=== PATIENT | male | born 1955 | race Caucasian/White ===

== ENCOUNTER → 2017-03-31 | Outpatient (CLI) | payer BC ==
[~2017-03-31] MED LIST: ASCO-297 PO; ATOR10TA20 PO; BUTA1TAB9 PO; CYAN1TAB46 PO; FISH1CAP59 PO; FLUT16SP12 NS; IBUP-1264 PO; METF-203 PO; MULT-934 PO; VITA200C63 PO
--- NOTE | 2017-03-31 10:43 | DI ---
Indication: ITS.REASON: R25.1 TREMOR, UNSPECIFIED PROCEDURE: MRI BRAIN W/O CONTRAST: Encounter: Initial Comparisons: Head CT dated April 08, 2013 Technique: Multiplanar, multisequence, MR imaging of the head without contrast was acquired. FINDINGS: The ventricles are of normal size, shape, and contour for the patient's age. There are small nonspecific punctate areas of T2-weighted and T2 FLAIR weighted signal abnormality in the deep frontoparietal white matter that most likely represent small vessel ischemic disease. This is of a degree that is considered to be normal for the patient's age. The brain stem, cerebellum, and cerebral hemispheres otherwise have a normal morphologic appearance as well as MR signal intensity on all pulse sequences. There are no areas of restricted diffusion on diffusion weighted imaging to suggest an acute infarct. There is no evidence of an intracranial mass lesion, intracranial hemorrhage, or hydrocephalus. The visualized portions of the orbits, calvarium, and skull base demonstrate no significant abnormality. Mild sphenoid sinus disease. IMPRESSION: Unremarkable MRI of the head for the patient's age without contrast. .
== END ==
LOC: IMA 08:59
PROVIDERS: ATTEND Family Medicine
DX: R25.1 Tremor, unspecified (principal)

== ENCOUNTER 2018-06-21 10:49 | Inpatient (IN) ==
[2018-06-21 15:25] VITALS: BMI 34.9
[2018-06-21] MEDS ORDERED: LOTEPREDNOL 0.5% EACH EYE ONE (17:06)
[2018-06-21] MEDS ORDERED: OPTH EACH EYE ONE (17:06)
[2018-06-21] MEDS ORDERED: HYDROCORTISONE 2.5% CREAM 30gm TOP ONE (17:10)
[2018-06-21] MEDS: AMOXICILLIN 500 MG CAPSULE PO SCH (17:30)
[2018-06-21] MEDS ORDERED: HYDROCORTISONE 2.5% CREAM 30gm TOP PRN (17:45)
[2018-06-21] MEDS: APIXABAN 5 MG TABLET PO SCH (22:23)
[2018-06-21] MEDS: FLUTICASONE NASAL SPRAY 50mcg EA NOSTRIL SCH (22:24)
[2018-06-21] MEDS: SYSTANE EYE DROPS 0.7ml EACH EYE SCH (22:24)
[2018-06-22] MEDS: AMOXICILLIN 500 MG CAPSULE PO SCH ×3 (02:06→17:42)
[2018-06-22] MEDS: LEVOTHYROXINE 75 MCG TABLET PO SCH (05:56)
[2018-06-22] MEDS: ASCORBIC ACID 500 MG TABLET PO SCH (08:52)
[2018-06-22] MEDS: APIXABAN 5 MG TABLET PO SCH ×2 (08:53→20:27)
[2018-06-22] MEDS: LOSARTAN 50 MG TABLET PO SCH (08:53)
[2018-06-22] MEDS: ASPIRIN 81 MG CHEWABLE TABLET PO SCH (08:53)
[2018-06-22] MEDS: SYSTANE EYE DROPS 0.7ml EACH EYE SCH ×4 (08:53→20:29)
[2018-06-22] MEDS ORDERED: BIOTIN 1 MG PO SCH (09:00)
[2018-06-22] MEDS: AMIODARONE 200 MG TABLET PO SCH ×2 (09:41→20:27)
[2018-06-22] MEDS: FLUTICASONE NASAL SPRAY 50mcg EA NOSTRIL SCH ×2 (09:42→20:28)
--- NOTE | 2018-06-22 10:40 | IRU 24Hr Post Admit Eval ---
24 Hr Post Admission Physical - Relevant Changes Relevant Changes: No Reviewed: I have reviewed the patient's information and concur with the finding and results of the pre-admission screen. Certification: I certify the patient for rehabilitation. - Patient Condition (1) Sepsis following procedure Status: Resolved Code(s): T81.4XXA - Infection following a procedure, initial encounter; A41.9 - Sepsis, unspecified organism Classification: IRF Tx That Should Address Diagnosis, Diagnosis Requiring Medical Follow Up Additional Information: This patient underwent lumbar laminectomy on 05/30/2018. He did well for several days but subsequently developed fever and increasing pain as well as delirium. He was noted to have a postoperative abscess which required surgical drainage. He met criteria for sepsis. He continues on oral antibiotics and close wound monitoring. (2) Paroxysmal atrial fibrillation with rapid ventricular response Status: Acute Code(s): I48.0 - Paroxysmal atrial fibrillation Classification: IRF Tx That Should Address Diagnosis, Diagnosis Requiring Medical Follow Up (3) Parkinson disease Status: Chronic Code(s): G20 - Parkinson's disease Classification: Present on IRF Admission, IRF Tx That Should Address Diagnosis, Diagnosis Requiring Medical Follow Up (4) DM II (diabetes mellitus, type II), controlled Status: Chronic Qualifiers: Diabetes mellitus penitentiary insulin use: without penitentiary use Diabetes mellitus complication status: without complication Qualified Code(s): E11.9 - Type 2 diabetes mellitus without complications Code(s): E11.9 - Type 2 diabetes mellitus without complications Classification: Present on IRF Admission, IRF Tx That Should Address Diagnosis, Diagnosis Requiring Medical Follow Up (5) Benign essential hypertension Status: Chronic Code(s): I10 - Essential (primary) hypertension Classification: Present on IRF Admission, IRF Tx That Should Address Diagnosis, Diagnosis Requiring Medical Follow Up - Prior Functional Status Lives With: Spouse Residence Type: Apartment/Private Home Assitive Devices: None Prior Functional Status: Indep. at home or school, Indep. w/ IADL - Current Functional Status Current Level of Function: Currently the patient requires moderate assistance for bathing, toileting and transfers. He requires moderate assistance for walking with a rolling walker 200 feet. He continues to experience numbness in the distal feet bilaterally. Failed Alternative Therapy: Arrived from Acute Care Patient Requirements: The patient requires oversight by rehabilitation physician to manage their rehabilitation treatment plan and multidisciplinary approach to care that can only be provided in an IRF and requires a multidisciplinary approach to care, provided by professional PTs, OTs, STs, dieticians, RTs, rehabilitation nurses and is not available in lesser levels of care. Limitations Req: Mobility Impairment, ADL Impairment Physical Therapy Minutes: 90 Occupational Therapy Minutes: 90 Therapy: The patient is to receive therapy at least 5 days a week. - Complications/Comorbidities Impact on Functional Outcomes: This patient's underlying Parkinson's disease as well as morbid obesity may negatively impact his functional outcome. Barriers to Discharge: Weakness, Endurance - Plan to Avoid Complications Plan to Avoid Complications: The patient cannot receive this care in a lesser intensive setting such as Alf or Outpatient Therapy due to the patient requiring the following : Mr. Batista requires close monitoring of his blood sugars as well as cardiac rhythm in view of his recent rapid ventricular response from atrial fibrillation and cardiac arrest. He requires close monitoring of his wound in view of the recent abscess and sepsis. Finally, he requires a multidisciplinary approach with PT and OT and medical supervision in view of these medical issues.
--- NOTE | 2018-06-22 14:16 | IRU History & Physical Report ---
HPI IRU Date: Date: 06/22/18 Time: 1401 Chief complaint: My back was infected HPI: Mr. Batista is a very pleasant 63-year-old male from [facility]. Referring physician is Ryan Roberson MD ([facility]). Primary care physician is Zach Hamilton M.D. The patient states that he was having progressive back pain and saw Dr. Hamilton. He was referred to Dr. Bingham. MRI demonstrated significant disease and he was taken to surgery by Dr. Bingham on 05/30/2018 for L4-L5 laminectomy. He initially was recovering from surgery without difficulty. He then noted progressive development of fever and worsening low back pain along with weakness and dizziness. He presented to the emergency department on 06/12/2018 and was noted to be confused and agitated. Initial lactic acid level was 2.2 and white count was 14,000. He met sepsis criteria and was felt to have a wound infection/abscess in the operative field. He also had some left upper extremity swelling. He was started on cefepime intravenously. Dr. Baker was director of aviation. He performed incision and drainage of the lumbar spine wound along with excisional debridement and closure above the level of the fascia on 06/13/2018. Wound cultures grew Escherichia coli. Attempted MRI was made but patient could not tolerate this without anesthesia. The patient was taken directly to surgery. Operative notes indicate that the wound was fully opened and the infection extended to the level of the laminectomy site with. Went fluid beneath the fascia. In the postoperative time frame, the patient was lying down and appeared to have a cardiac arrest. He did receive several rounds of compressions and he was intubated for his respiratory arrest. CT angiogram demonstrated fluid overload with small bilateral effusions but no evidence of pulmonary embolus. Etiology of his cardiac and respiratory arrest was felt to be secondary to a combination of sepsis and use of labetalol. There is report of paroxysmal atrial fibrillation with rapid ventricular response. It is my ascending that he saw Dr. Recinos and was started on amiodarone. He has since been converted back to normal sinus rhythm. He remains on amiodarone and diltiazem. The exact sequence of events is not totally clear to me but apparently he initially had hypertension and tachycardia and was started on labetalol. His arrest occurred at approximately 1900 hrs. on 06/13/2018. He was successfully extubated on 06/15/2018. He was in the ICU until 06/19/2018. The patient does not have history of prior atrial flutter nor atrial fibrillation to his knowledge. Echocardiogram in May 2018 demonstrated ejection fraction of 55-60% and there is mention made that there is no acute change in that on recent echocardiogram. It is also not clear if an MRI was able to be completely performed or not prior to the surgery. At one point records indicate that they were not able to complete this and at another point there is indication that he did have an MRI but no discitis nor ostium myelitis was found. There was evidence of fluid collection in the surgical bed damage hurting some pockets of air raising concern for infection/abscess. In addition, the patient has history of diabetes mellitus on oral agents. He recalls his most recent A1c 6.2 in November 2017. He is on metformin and dietary management. The patient does live at home in his own home with his . He works as a feeder driver. He has 3 steps to get into their home without a handrail. He does not normally use an assistive device. 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 He was independent for IADLs as well. Current level of functioning is as follows: He requires supervision for eating and grooming. He requires moderate assistance for bathing as well as lower body dressing, toileting and transfers. He requires moderate assistance for walking with a rolling walker 200 feet. The patient states that he does have some mild cognitive issues since the cardiac arrest. Specifically he states that he will start to tell a story or relate an event but then get easily "sidetracked." At the present time however he does not display evidence of significant cognitive dysfunction upon my interview. The following medical conditions are noted and require active monitoring and/or management: 1. Status post soft tissue infection/abscess at surgical site following laminectomy at L4-L5 resulting in sepsis. He remains on oral antibiotics consisting of amoxicillin. 2. Postoperative wound infection requiring close wound monitoring. 3. Diabetes mellitus type 2, not on long-term insulin and without definite complications. Last A1c reportedly 6.2%. 4. Parkinson's disease 5. Recent paroxysmal atrial fibrillation with rapid ventricular response, newly on amiodarone plus diltiazem plus Eliquis 6. Recent cardiac arrest following labetalol usage 7. Benign essential hypertension 8. Obstructive sleep apnea requiring nasal CPAP at night This patient is medically stable enough to participate in therapy. Potential risks for complications and plans for mitigation of these risks: 1. The patient is at risk for recurrent infection in the lumbar spine area as well as recurrent wound infection. Close monitoring by nursing will be undertaken. We will continue amoxicillin per recommendation of infectious disease. 2. Uncontrolled blood sugars either elevated or decreased, as a result of variable energy requirements in the process of rehabilitation. His blood sugars will be monitored carefully and medications adjusted appropriately. 3. He is at risk for recurrent atrial fibrillation with rapid ventricular response. Telemetry will be utilized. We will continue current medications per recommendation of cardiology as well as monitoring him clinically for cardiac issues. He is newly on Eliquis and will be monitored for evidence of bleeding/ anemia. 4. He is at risk for marked elevated blood pressures and will be monitored for this. The following therapies will be needed: 1. Physical therapy: for transfers and ambulation and stairs. 2. Occupational therapy: for ADL's and transfers. 3. Medical management: for the above conditions. 4. 24 hour Rehabilitation Nursing to monitor and address the following: Monitor wound for evidence of recurrent infection and for adequate healing, assess and treat pain for appropriate management, monitor blood sugars and blood pressures. FORMERLY [facility], 1928–1983 Patient Stated Medical History Parkinson's Disease Yes Hearing Loss Yes: hearing aid right only Hypertension Yes Myocardial Infarction Yes Bronchitis Yes Pneumonia Yes Sleep Apnea Yes: cpap Diabetes Mellitus Type 2 Yes Constipation No Hx Incontinence No Herpes Yes: venerial warts Sepsis Yes Medical History Updates: 1. Lumbar foraminal stenoses, symptomatic. 2. Postoperative wound infection. 3. Diabetes mellitus type 2 not on long-term insulin, controlled. 4. Benign essential hypertension. 5. Hyperlipidemia. 6. Osteoarthritis. 7. Parkinson's disease. 8. Obstructive sleep apnea Surgical History: 1. Lumbar laminectomy L4-L5. 2. Postoperative abscess/soft tissue infection/wound infection with I and D and closure of wound. 3. Right rotator cuff repair 2004. 4. Left knee arthroscopy 1997. 5. Herniorrhaphy at age 1 Family History: Patient's father of congestive heart failure. Mother of uncertain reasons. Has 2 living brothers both of whom have had heart disease. One sister apparently is healthy. - Social History Smoking status: Former smoker (patient smoked from age 16 until age 30, 1-1/2 packs daily) Packs per day: 1.5 Packs-years: 21 Substance use type: does not use Alcohol intake: current Alcohol intake frequency: a few times a week (once weekly approximately.) Housing: house Household members: spouse Current occupational status: employed Current residence: Apartment/Private Home Social history: Patient is actively employed as a feeder driver. He lives in [facility] with his . Review of Systems - Constitutional Constitutional: Present: fatigue, weakness. Absent: anorexia, chills, fever(s) , headache(s), lethargy, malaise, night sweats, weight gain, weight loss - EENMT Eyes: Absent: blurry vision, change in vision, diplopia Mouth/Throat: Absent: changes in swallowing, painful swallowing, change in taste , bleeding gums, change in voice - Cardiovascular Cardiovascular: Present: dyspnea on exertion (recently). Absent: chest pain, palpitations, syncope, orthopnea, edema, cyanosis, heart murmur Rhythm: Present: regular rhythm Vascular: Absent: intermittent claudication, pedal edema, unilateral swelling - Respiratory Respiratory: Present: dyspnea on exertion. Absent: cough, dyspnea, hemoptysis, wheezing, pain on inspiration, chest congestion, excessive phlegm production - Gastrointestinal Gastrointestinal: Absent: abdominal pain, change in bowel habits, constipation, diarrhea, dyspepsia, dysphagia, early satiety, hematochezia, melena, nausea, vomiting - Musculoskeletal Musculoskeletal: Present: back pain. Absent: abnormal gait, arthralgias, joint swelling, limited range of motion, muscle weakness - Integumentary/Breasts Integumentary: Absent: alopecia, erythema, lesions, pruritus, rash, jaundice - Neurological Neurological: Present: numbness (distal feet bilaterally pre-dating surgery). Absent: abnormal gait, abnormal movements, abnormal speech, confusion, convulsions, dizziness, focal weakness, frequent falls, headache(s), loss of vision, memory loss, tremor(s) Neurological Comments: History of obstructive sleep apnea - Psychiatric Psychiatric: Absent: abnormal sleep pattern, anxiety, depression - Endocrine Endocrine: Absent: cold intolerance, flushing, heat intolerance, palpitations - Hematologic/Lymphatic Hematologic/Lymphatic: Absent: easy bleeding, easy bruising, lymphadenopathy - Allergic/Immunologic Allergic/Immunologic: Absent: urticaria Medications Home Medications Medication Instructions Recorded Confirmed Type Apixaban [Eliquis] 5 mg PO BID 06/21/18 06/21/18 History Ascorbic Acid [Vitamin C] 1,000 mg PO DAILY 06/21/18 06/21/18 History Aspirin Chewable [ASA] 81 mg PO DAILY 06/21/18 06/21/18 History Biotin 1 mg PO DAILY 06/21/18 06/21/18 History Carbidopa/Levodopa [Sinemet Cr 1 each PO TID 06/21/18 06/21/18 History 25-100 Tablet] Cholecalciferol (Vitamin D3) 1 tab PO DAILY 06/21/18 06/21/18 History [Vitamin D3] Cyclobenzaprine [Flexeril] 1 tab PO TID PRN 06/21/18 06/21/18 History Fluticasone Nasal [place] [Flonase] 2 spray EA NOSTRIL BID 06/21/18 06/21/18 History HydroCHLOROthiazide [Hydrodiuril] 1 tab PO WB 06/21/18 06/21/18 History Hydrocodone/APAP 7.5/325 [[place] 1 - 2 tab PO Q4HR PRN 06/21/18 06/21/18 History 7.5/325] Levothyroxine Tab [Synthroid] 75 mcg PO ACB 06/21/18 06/21/18 History Losartan Potassium [Cozaar] 50 mg PO DAILY 06/21/18 06/21/18 History Metformin [Glucophage] 850 mg PO WB 06/21/18 06/21/18 History Multivitamin [Multivitamins] 1 each PO DAILY 06/21/18 06/21/18 History Vitamin B Complex [Super B-50 1 each PO DAILY 06/21/18 06/21/18 History Complex] dilTIAZem HCl [Diltiazem ER] 180 mg PO DAILY 06/21/18 06/21/18 History Allergies Allergy/AdvReac Type Severity Reaction Status Date / Time labetalol Allergy Severe Myocardial Verified 06/21/18 15:49 Infarction morphine Allergy Severe Psychosis Verified 06/21/18 15:49 Sulfa (Sulfonamide Allergy Unknown THROAT Verified 06/21/18 16:25 Antibiotics) SWELLING sulfamethoxazole Allergy Unknown THROAT Verified 06/21/18 16:25 SWELLING trimethoprim Allergy Unknown THROAT Verified 06/21/18 16:25 SWELLING haloperidol [From Haldol] AdvReac Severe Psychosis Verified 06/21/18 15:49 lorazepam [From Ativan] AdvReac Severe Psychosis Verified 06/21/18 15:49 Results IRU - Labs Labs: I have reviewed extensive notes from [facility]. Exam Vital Signs: Temperature 98.5 F 06/22/18 08:00 Pulse Rate 75 06/22/18 08:00 Respiratory Rate 18 06/22/18 08:00 Blood Pressure 159/75 H 06/22/18 08:00 Pulse Oximetry 93 06/22/18 08:00 Height/Weight/BMI: Height 1.83 m Weight 116.7 kg Body Mass Index 34.9 - Constitutional Present: no acute distress, well nourished, well developed, obese, cooperative - Routine HEENT Exam Head: Present: normocephalic, atraumatic. Absent: cushingoid faces, abrasion, laceration, hematoma Eye: Present: EOMI, PERRL. Absent: conjunctival icterus, scleral injection, periorbital swelling, nystagmus ENT: Present: mucous membranes moist, oropharynx clear - Routine Neck Exam Present: supple, full ROM, trachea midline. Absent: lymphadenopathy, thyromegaly, tenderness, swelling - Routine Chest/Breast/Axilla Exam Chest wall: Absent: tenderness, mass Axillae: Absent: lymphadenopathy, mass - Routine Respiratory Exam Present: CTA bilaterally. Absent: accessory muscle use, decreased breath sounds , prolonged expiratory phase, rales, respiratory distress, rhonchi, stridor, wheezes, crackles, distant breath sounds - Routine Cardiovascular Exam Present: RRR, S1, S2, no murmur. Absent: gallop, S3, S4, click, irregular rhythm - Routine Abdominal Exam Present: soft, normoactive bowel sounds, non distended, non tender. Absent: rebound, guarding, firm, rigid, organomegaly, mass, hernia, wound - Routine Extremities Exam Present: no edema, non tender, pulses intact, normal capillary refill. Absent: cyanosis, clubbing - Routine Back/Spine/Pelvis Exam Back/Spine: Present: full ROM. Absent: scoliosis, kyphosis Comments: I examined his wound in the lumbar spine area. Scant serous drainage noted. - Routine Skin Exam Present: intact, dry, warm. Absent: cyanosis, erythema, pallor, mottling, petechiae, urticaria, lesions, jaundice - Routine Neurological Exam Present: alert, oriented X3, CN II-XII intact, moving all extremities, normal speech - Routine Psychiatric Exam Present: normal affect, normal thought process, cooperative, good insight, good judgment. Absent: depressed, anxious Sepsis Assessment - Evaluation Severe Sepsis: none seen IRU A/P (1) Sepsis following procedure Current visit: Yes Status: Resolved Patient has recent history of systemic inflammatory response syndrome and sepsis related to soft tissue/postoperative wound infection in his lumbar spine area. Escherichia coli grew from the wound by report. He remains on amoxicillin. No evidence of active infection at present and the wound will be monitored carefully in this regard. (2) Paroxysmal atrial fibrillation with rapid ventricular response Current visit: Yes Status: Acute The patient apparently had atrial fibrillation and is now on amiodarone and diltiazem along with Eliquis. He will be monitored for evidence of recurrent tachycardia, hypotension, bleeding and other side effects from medications. Telemetry will be utilized. (3) Parkinson disease Current visit: Yes Status: Chronic (4) DM II (diabetes mellitus, type II), controlled Qualifiers: Diabetes mellitus extermination supervisor insulin use: without extermination supervisor use Diabetes mellitus complication status: without complication Qualified Code(s): E11.9 - Type 2 diabetes mellitus without complications Current visit: Yes Status: Chronic His blood sugars will be monitored. Continue current medications. He is at risk for hyperglycemia or hypoglycemia in view of the increased energy demands with therapy. (5) Benign essential hypertension Current visit: Yes Status: Chronic DVT Prophylaxis: Eliquis Resuscitation Status: Full Code - Course Hospital Course: Howard Staples MD: - Interventions to Obtain Goals PT Treatment Plan: Balance/Proprioception, Functional Activities, Gait Training , Patient/Family Education, Therapeutic Exercise OT Treatment Plan: ADL (Basic Care), Balance Training, Pt./Family Education, Ther. Exercise for ADL Goals Progress/Modifications: This patient is medically complex with history of severe infection involving the soft tissue and wound of the lumbar spine area. In addition he is at risk for recurrence of his atrial fibrillation with rapid ventricular response. He will be monitored carefully Garcia for both cardiac and infectious complications. In addition he will be monitored for his blood sugars in view of his diabetes and his blood pressure. A multidisciplinary approach with 24 hour rehabilitation nursing as well as PT and OT will be undertaken with medical supervision.
[2018-06-22] MEDS: LOTEPREDNOL 0.5% EACH EYE SCH (15:00)
[2018-06-22] MEDS: EYE EACH EYE SCH (15:00)
[2018-06-22] MEDS: HYDROCODONE/APAP 7.5 MG/325 MG TABLET PO PRN (16:30)
--- NOTE | 2018-06-22 16:32 | Consult Note ---
Consult Information - Data of Consult Consult date: 06/22/18 Requesting Physician: Howard Staples MD Primary Care Provider: Zach Hamilton MD - Consult Narrative Reason for consult: Medical management History of present illness: Patient is a 63 yo male who was admitted to IRU following hospitalization in [place] for an infection in his back. He had an elective back surgery (L4-5 laminectomy) on 05/30/[address] Bingham and had an uneventful post-op course. He was dismissed home 2days after surgery in good condition. A few days later, he developed fever and was so sick his called EMS. At that time (06/12/18), he was taken to [facility] and found to be septic. He was started on cefepime and taken back to OR for I&D and excisional debridement on 06/13/18. Wound cultures grew out e coli. In the post-op time period, he went into cardiac arrest thought to be b/c of the combination of his sepsis and labetolol which was being used to treat afib vs flutter which he had developed post-op. Pt states "they lost me for 4 minutes." He was intubated with the arrest and was extubated on 06/15/18. Dr. John started on amiodarone and Eliquis. He has since converted back to NSR. Patient admitted to IRU for strengthening and improvement in functional abilities. 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 His chronic health probs include Parkinsons, DM2, HTN and SCAR. Past Medical History Medical History Updates: 1. Lumbar foraminal stenoses, symptomatic. 2. Postoperative wound infection. 3. Diabetes mellitus type 2 not on long-term insulin, controlled. 4. Benign essential hypertension. 5. Hyperlipidemia. 6. Osteoarthritis. 7. Parkinson's disease. 8. Obstructive sleep apnea Surgical History: 1. Lumbar laminectomy L4-L5. 2. Postoperative abscess/soft tissue infection/wound infection with I and D and closure of wound. 3. Right rotator cuff repair 2004. 4. Left knee arthroscopy 1997. 5. 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 Dr Hamilton - PCP Dr Garcia - Neuro Dr Bingham - Neurosurgeon Review of Systems All systems PM: 10-point ROS was reviewed, no additional remarkable complaints except (weakness, back pain) Medications Home Medications Medication Instructions Recorded Confirmed Type Apixaban [Eliquis] 5 mg PO BID 06/21/18 06/21/18 History Ascorbic Acid [Vitamin C] 1,000 mg PO DAILY 06/21/18 06/21/18 History Aspirin Chewable [ASA] 81 mg PO DAILY 06/21/18 06/21/18 History Biotin 1 mg PO DAILY 06/21/18 06/21/18 History Carbidopa/Levodopa [Sinemet Cr 1 each PO TID 06/21/18 06/21/18 History 25-100 Tablet] Cholecalciferol (Vitamin D3) 1 tab PO DAILY 06/21/18 06/21/18 History [Vitamin D3] Cyclobenzaprine [Flexeril] 1 tab PO TID PRN 06/21/18 06/21/18 History Fluticasone Nasal [place] [Flonase] 2 spray EA NOSTRIL BID 06/21/18 06/21/18 History HydroCHLOROthiazide [Hydrodiuril] 1 tab PO WB 06/21/18 06/21/18 History Hydrocodone/APAP 7.5/325 [[place] 1 - 2 tab PO Q4HR PRN 06/21/18 06/21/18 History 7.5/325] Levothyroxine Tab [Synthroid] 75 mcg PO ACB 06/21/18 06/21/18 History Losartan Potassium [Cozaar] 50 mg PO DAILY 06/21/18 06/21/18 History Metformin [Glucophage] 850 mg PO WB 06/21/18 06/21/18 History Multivitamin [Multivitamins] 1 each PO DAILY 06/21/18 06/21/18 History Vitamin B Complex [Super B-50 1 each PO DAILY 06/21/18 06/21/18 History Complex] dilTIAZem HCl [Diltiazem ER] 180 mg PO DAILY 06/21/18 06/21/18 History Allergies Allergy/AdvReac Type Severity Reaction Status Date / Time labetalol Allergy Severe Myocardial Verified 06/21/18 15:49 Infarction morphine Allergy Severe Psychosis Verified 06/21/18 15:49 Sulfa (Sulfonamide Allergy Unknown THROAT Verified 06/21/18 16:25 Antibiotics) SWELLING sulfamethoxazole Allergy Unknown THROAT Verified 06/21/18 16:25 SWELLING trimethoprim Allergy Unknown THROAT Verified 06/21/18 16:25 SWELLING haloperidol [From Haldol] AdvReac Severe Psychosis Verified 06/21/18 15:49 lorazepam [From Ativan] AdvReac Severe Psychosis Verified 06/21/18 15:49 Exam Vital Signs: Temperature 98.5 F 06/22/18 15:35 Pulse Rate 73 06/22/18 15:35 Respiratory Rate 18 06/22/18 15:35 Blood Pressure 146/80 H 06/22/18 15:35 Pulse Oximetry 96 06/22/18 15:35 Height/Weight/BMI: Height 1.83 m Weight 116.7 kg Body Mass Index 34.9 - Constitutional Present: no acute distress, well nourished, well developed - Routine HEENT Exam Head: Present: normocephalic, atraumatic Eye: Present: EOMI, PERRL ENT: Present: mucous membranes moist, oropharynx clear - Routine Neck Exam Absent: lymphadenopathy - Routine Respiratory Exam Present: CTA bilaterally. Absent: wheezes - Routine Cardiovascular Exam Present: RRR, no murmur - Routine Abdominal Exam Present: soft, normoactive bowel sounds. Absent: tenderness, distended - Routine Extremities Exam Present: no edema, normal capillary refill - Routine Skin Exam Present: dry, warm Comments: dressing intact over lower back. Surrounding skin was w/o redness. No surrounding tenderness or swelling. - Routine Neurological Exam Present: alert, oriented X3, CN II-XII intact - Routine Psychiatric Exam Present: normal affect, cooperative Results - Labs CBC & Chem 7: 06/22/18 04:09 06/22/18 04:09 Assessment and Plan (1) Wound infection after surgery Current visit: Yes Status: Acute Assessment and Plan: Assessment Lumbar foraminal stenoses - s/p L4-5 laminectomy 05/30/[address] Bingham Postoperative wound infection (e coli)- s/p washout 06/13/[address] Baker Recent a-fib with RVR, converted back to NSR (on amiodarone and Eliquis) Diabetes mellitus type 2 (11/24 A1C 6.2) Benign essential hypertension Hyperlipidemia Osteoarthritis Parkinson's disease Obstructive sleep apnea Anemia, normocytic - POA Hypothyroidism Post op constipation Obesity BMI 34 Plan Agree with admission to IRU for therapies and pain control per Dr. Staples. Continue Amoxicillin 500mg TID through 07/11/18 for e coli wound infection of the back per Dr. Roberson Sutures are to be removed Jul 08 if well healed and no drainage Taper amiodarone from 400mg BID to 200mg daily on Jun 23. Will monitor on tele. Will consult Dr. John if any concerns during his stay. Outside records rec f-u with Dr John following discharge. Monitor BS's. Continue metformin and use SSI for strict BS control while healing. Hospitalist service will follow along with you throughout his stay. Thanks for the consult. Care to return to Dr. Hamilton on DC. DVT Prophylaxis: Eliquis Resuscitation Status: Full Code - Physician Narrative Physician: Antony Navarro MD Narrative: Date: 06/22/18 Time: 2030 Have independently interviewed/examined pt. Chart reviewed. Case discussed with my PA. Above care plan developed with my supervision; agree with above. Admitted to IRU for restorative therapy following prolonged hospitalization secondary to sepsis from back surgery wound. Very ill during admission. Did develop afib post op and then had cardiopulmonary arrest secondary to sepsis and labetalol. Recovered to point of being able to tolerate therapy. Functional status very decreased. Pain controlled other than JIMENES. Bowels very slow during acute admission but did start to move towards end of stay after multiple modalities (Dulcolax suppository, Warm water enema, and ultimately 'Brown Cow') . Reports good bowel movement this morning. Eating well. Breathing well. Does have some recall issues (possible anoxic brain insult secondary to arrest). Lungs: clear bilaterally CV: regular AB: soft nt/nd MSE; awake alert Plan: Agree with admission of pt to IRU to maximize functional status. Encourage participation with therapy. Continue with medications as outlined from [facility]. Monitor blood sugars. Monitor wound. Will have MOM/Dulcolax/Miralax prn constipation. Medically stable for IRU floor participation. Will follow along during his rehabilitation stay. Hospital Course Summary Disclaimer: The visit summary below is not to be considered part of the above Progress Note. Hospital Course: 06/22/18 Agree with admission to IRU for therapies and pain control per Dr. Staples. Continue Amoxicillin 500mg TID through 07/11/18 for e coli wound infection of the back per Dr. Roberson. Sutures are to be removed Jul 08 if well healed and no drainage. Taper amiodarone from 400mg BID to 200mg daily on Jun 23. Will monitor on tele. Will consult Dr. John if any concerns during his stay. Outside records rec f-u with Dr John following discharge. Monitor BS's. Continue metformin and use SSI for strict BS control while healing. Hospitalist service will follow along with you throughout his stay. Thanks for the consult. Care to return to Dr. Hamilton on DC.
[2018-06-22] MEDS ORDERED: ACETAMINOPHEN 325 MG TABLET PO PRN (20:27)
[2018-06-22] MEDS ORDERED: BISACODYL 10 MG SUPPOSITORY RECTALLY PRN (20:28)
[2018-06-22] MEDS ORDERED: POLYETHYL GLYCOL 3350 17gm PACKET PO PRN (20:28)
[2018-06-22] MEDS: CYCLOBENZAPRINE 10 MG TABLET PO PRN (20:29)
[2018-06-22] MEDS: INSULIN ASPART 100unit/ml INJECTION SQ PRN (20:29)
[2018-06-22] MEDS: SALINE FLUSH 10ml SYRINGE IV PRN (20:31)
[2018-06-22] MEDS ORDERED: AMIODARONE 200 MG TABLET PO SCH (21:00)
[2018-06-23] MEDS: HYDROCODONE/APAP 7.5 MG/325 MG TABLET PO PRN ×2 (00:32→08:36)
[2018-06-23] MEDS: AMOXICILLIN 500 MG CAPSULE PO SCH ×5 (00:32→23:56)
[2018-06-23] MEDS: LEVOTHYROXINE 75 MCG TABLET PO SCH (06:23)
[2018-06-23] MEDS: APIXABAN 5 MG TABLET PO SCH ×2 (08:36→20:54)
[2018-06-23] MEDS: ASPIRIN 81 MG CHEWABLE TABLET PO SCH (08:36)
[2018-06-23] MEDS: CYCLOBENZAPRINE 10 MG TABLET PO PRN (08:36)
[2018-06-23] MEDS: AMIODARONE 200 MG TABLET PO SCH ×2 (08:38→20:54)
[2018-06-23] MEDS: LOSARTAN 50 MG TABLET PO SCH (08:38)
[2018-06-23] MEDS: ASCORBIC ACID 500 MG TABLET PO SCH (08:39)
[2018-06-23] MEDS: SYSTANE EYE DROPS 0.7ml EACH EYE SCH ×4 (08:39→20:55)
[2018-06-23] MEDS: EYE EACH EYE SCH (08:40)
[2018-06-23] MEDS: LOTEPREDNOL 0.5% EACH EYE SCH (08:40)
--- NOTE | 2018-06-23 10:36 | IRU Progress Note ---
- Subjective/Serverity of Illness Date: 06/23/18 Mr. Batista reported some headache earlier today which is unusual for him. This has since resolved. He attributes it to lack of caffeine. He reports the back is doing reasonably well. He is cooperative with therapy. He denies any chest pain or shortness of breath. Unfortunately he actually pulled out the saline lock or at least it came out last night. I reviewed telemetry strips which reveal normal sinus mechanism. In [place] he had atrial fibrillation with rapid ventricular response which subsequently was converted. He appears to be stable at the present time. In view of this, we will discontinue telemetry and leave the saline lock out. I inspected his wound on his back. It is healing nicely. No evidence of significant drainage. May be just a scant amount of serosanguineous material. Initial blood sugar is 121 although fingersticks are pending. Will monitor this carefully. His blood pressure ranges between 120s and around 170. Much of this may be related to activity or pain. Exam Vital Signs: Temperature 98.7 F 06/23/18 08:00 Pulse Rate 69 06/23/18 08:00 Respiratory Rate 16 06/23/18 08:00 Blood Pressure 127/65 06/23/18 08:00 Pulse Oximetry 96 06/23/18 08:00 Height/Weight/BMI: Height 1.83 m Weight 116.7 kg Body Mass Index 34.9 - Constitutional Present: no acute distress, well nourished, well developed, obese, cooperative - Routine HEENT Exam Eye: Present: EOMI ENT: Present: mucous membranes moist - Routine Respiratory Exam Present: CTA bilaterally. Absent: wheezes - Routine Cardiovascular Exam Present: RRR, S1, S2. Absent: murmur - Routine Abdominal Exam Present: soft, normoactive bowel sounds, non distended. Absent: tenderness - Routine Extremities Exam Present: no edema, normal capillary refill - Routine Back/Spine/Pelvis Exam Back/Spine: Absent: full ROM Comments: Inspection of his low lumbar wound was performed. Scant serosanguineous drainage may be present. There is no evidence of alarming surrounding erythema at this time. - Routine Skin Exam Present: dry, warm, wounds (see above description regarding low back wound.) - Routine Neurological Exam Present: alert, oriented X3, CN II-XII intact, moving all extremities - Routine Psychiatric Exam Present: normal affect Results IRU - Labs Labs: Have reviewed lab data as well as other providers notes. IRU A/P (1) Sepsis following procedure Current visit: Yes Status: Resolved Patient remains afebrile and his white count is normal. He remains on amoxicillin per recommendation of ID. The wound looks good. (2) Paroxysmal atrial fibrillation with rapid ventricular response Current visit: Yes Status: Acute Review of telemetry strips indicates normal sinus mechanism. IV came out last night so we will discontinue telemetry and discontinue saline lock. (3) Parkinson disease Current visit: Yes Status: Chronic (4) DM II (diabetes mellitus, type II), controlled Qualifiers: Diabetes mellitus senior care insulin use: without local company intermodal truck driver use Diabetes mellitus complication status: without complication Qualified Code(s): E11.9 - Type 2 diabetes mellitus without complications Current visit: Yes Status: Chronic Initial blood sugar 121. We'll monitor fingerstick values. (5) Benign essential hypertension Current visit: Yes Status: Chronic Blood pressure is quite variable. We will continue to monitor at present. DVT Prophylaxis: Eliquis Resuscitation Status: Full Code - Course Hospital Course: Howard Staples MD: 06/23/18 10:37 Blood pressures variable with values up to 170. Blood sugar is stable. Back wound looks good. Cooperative with therapy. Saline lock came out so we'll discontinue telemetry. - Interventions to Obtain Goals PT Treatment Plan: Balance/Proprioception, Functional Activities, Gait Training , Patient/Family Education, Therapeutic Exercise OT Treatment Plan: ADL (Basic Care), Balance Training, Pt./Family Education, Ther. Exercise for ADL Goals Progress/Modifications: I reviewed his cardiac status. He continues to be stable with evidence of normal sinus mechanism both clinically as well as on telemetry. His saline lock came out last night so we will discontinue telemetry and discontinue the saline lock. He denies any chest pain or shortness of breath. He has been awake and alert and cooperative. He has not been confused. In addition, inspection of the wound indicates no evidence of active infection. He remains on amoxicillin without known side effects. He remains afebrile. Please note that the patient's individual plan of care was developed and documented today, requiring review of therapy notes, medical conditions and anticipated functional recovery. This required additional medical decision making with regard to interaction of the patient's medical issues with the anticipated functional recovery. Please see separate document
--- NOTE | 2018-06-23 10:41 | IRU Plan of Care ---
[facility] Overall Plan of Care - Date Date: 06/23/18 - Patient Impairments (1) Wound infection after surgery Qualifiers: Encounter type: initial encounter Qualified Code(s): T81.4XXA - Infection following a procedure, initial encounter Code(s): T81.4XXA - Infection following a procedure, initial encounter Status : Acute Classification: IRF Tx That Should Address Diagnosis, Diagnosis Requiring Medical Follow Up (2) Paroxysmal atrial fibrillation with rapid ventricular response Code(s): I48.0 - Paroxysmal atrial fibrillation Status: Acute Classification: IRF Tx That Should Address Diagnosis, Diagnosis Requiring Medical Follow Up (3) Benign essential hypertension Code(s): I10 - Essential (primary) hypertension Status: Chronic Classification: Present on IRF Admission, IRF Tx That Should Address Diagnosis, Diagnosis Requiring Medical Follow Up (4) DM II (diabetes mellitus, type II), controlled Qualifiers: Diabetes mellitus technician terminal and repeater insulin use: without technician terminal and repeater use Diabetes mellitus complication status: without complication Qualified Code(s): E11.9 - Type 2 diabetes mellitus without complications Code(s): E11.9 - Type 2 diabetes mellitus without complications Status: Chronic Classification: Present on IRF Admission, IRF Tx That Should Address Diagnosis, Diagnosis Requiring Medical Follow Up (5) Parkinson disease Code(s): G20 - Parkinson's disease Status: Chronic Classification: Present on IRF Admission, IRF Tx That Should Address Diagnosis, Diagnosis Requiring Medical Follow Up (6) Sepsis following procedure Code(s): T81.4XXA - Infection following a procedure, initial encounter; A41.9 - Sepsis, unspecified organism Status: Resolved Classification: IRF Tx That Should Address Diagnosis, Diagnosis Requiring Medical Follow Up - Relevant Changes Relevant Changes: No Reviewed: I have reviewed the patient's information and concur with the finding and results of the pre-admission screen. Certification: I certify the patient for rehabilitation. - Medical Prognosis Medical Prognosis: Good Vital Signs: Last Vital Signs Temp 98.7 F 06/23/18 08:00 Pulse 69 06/23/18 08:00 Resp 16 06/23/18 08:00 BP 127/65 06/23/18 08:00 Pulse Ox 96 06/23/18 08:00 - Anticipated Interventions Anticipated Interventions: The patient requires inpatient IRF care for PT, OT, and/or ST for residuals remaining from wound infection and sepsis following laminectomy resulting in muscular weakness and strength deficits. An individualized overall plan of care has been developed after careful review of the patient's preadmission screening , post admission physician evaluation and assessments of all therapy disciplines and/or other pertinent clinicians involved in treating the patient. This indicates medical necessity and rehabilitation necessity have been established through a thorough review of all available medical information. - Current Functional Status Failed Alternative Therapy: Arrived from Acute Care Patient Requires: The patient requires oversight by rehabilitation physician to manage their rehabilitation treatment plan and multidisciplinary approach to care that can only be provided in an IRF and requires a multidisciplinary approach to care, provided by professional PTs, OTs, STs, rehabilitation nurses, and may require STs, dieticians, and RTS. This is not available in lesser levels of care. Physical Therapy Minutes: 90 Occupational Therapy Minutes: 90 Therapy: The patient is to receive therapy at least 5 days a week. - Anticipated LOS/Outcomes Anticipated Functional Outcome: It is anticipated the patient will be able to return to his home was modified independent level of functioning. He will be able to perform his ADLs at modified independent level or better. He will be require continued assistance with IADLs. It is anticipated that his low back wound will not show evidence of infection and that he will be afebrile. Expected functional improvements include : -- Modified independant to independant ambulation with or without assistive device -- Modified independant to independant ADL's with or without assistive device -- Return to pre-morbid level of mobility -- Maximize level of mobility and ADL's to decrease burden on any caregiver involved with this patient's care Anticipated Length of Stay (days): 7 Anticipated DC Destination: Home Health Service Home Safety Plan: The patient will be provided with the development of a Home Safety Plan for return to a home or home-like environment and and to ensure safety post discharge. - Plan to Avoid Complications Barriers to Attaining Goals: Weakness, Balance, Endurance Plan to Avoid Complications: The patient cannot receive this care in a lesser intensive setting such as Detention or Outpatient Therapy due to the patient requiring the following : This patient requires close 24 hour rehabilitation nursing monitoring of his wound as well as vital signs to ensure no evidence of recurrence of wound infection or sepsis. He requires close monitoring of his blood sugars and blood pressure. He requires a multidisciplinary approach with PT and OT and medical supervision in view of these medical issues.
[2018-06-23] MEDS: INSULIN ASPART 100unit/ml INJECTION SQ PRN ×2 (11:00→21:10)
[2018-06-23] MEDS: FLUTICASONE NASAL SPRAY 50mcg EA NOSTRIL SCH ×2 (11:00→20:53)
--- NOTE | 2018-06-23 13:32 | IRU Team Meeting ---
IRU Team Meeting - Nursing Bladder Management Level of Assist: Independent Bladder Frequency of Accidents: No accidents Bowel Management Level of Assist: Independent Bowel Frequency of Accidents: No accidents Vital Signs: Vital Signs - 24 hr 06/22/18 15:11 06/22/18 15:35 06/22/18 20:01 Temperature 98.5 F 97.9 F Pulse Rate 71 73 68 Respiratory Rate 18 22 Blood Pressure 146/80 H 171/87 H Pulse Oximetry 96 95 06/23/18 00:00 06/23/18 08:00 Temperature 98.7 F Pulse Rate 63 69 Respiratory Rate 16 Blood Pressure 127/65 Pulse Oximetry 96 Current Medications: Acetaminophen (Tylenol) 650 mg PO Q5H PRN PRN Reason: Discomfort Hydrocodone Bitart/Acetaminophen ([place] 7.5/325) 1 - 2 tab PO Q4HR PRN PRN Reason: Pain Last Admin: 06/23/18 08:36 Dose: 1 tab Amiodarone HCl ([place]) 200 mg PO DAILY [facility] Amiodarone HCl ([place]acer[place]) 400 mg PO BID [facility] Stop: 06/23/18 23:59 Last Admin: 06/23/18 08:38 Dose: 400 mg Amoxicillin () 500 mg PO Q8HR [facility] Stop: 07/11/18 23:55 Last Admin: 06/23/18 08:36 Dose: 500 mg Apixaban (Eliquis) 5 mg PO BID [facility] Last Admin: 06/23/18 08:36 Dose: 5 mg Ascorbic Acid (Vitamin C) 1,000 mg PO DAILY [facility] Last Admin: 06/23/18 08:39 Dose: 1,000 mg Aspirin (Asa) 81 mg PO DAILY [facility] Last Admin: 06/23/18 08:36 Dose: 81 mg Bisacodyl (Dulcolax) 10 mg RECTALLY DAILY PRN PRN Reason: Constipation Carbidopa/Levodopa (Sinemet Cr) 0.5 tab PO TID [facility] Last Admin: 06/23/18 08:37 Dose: 0.5 tab Cholecalciferol (Vit. D-3) 1,000 unit PO DAILY [facility] Last Admin: 06/23/18 08:39 Dose: 1,000 unit Cyclobenzaprine HCl (Flexeril) 10 mg PO TID PRN PRN Reason: Pain Last Admin: 06/23/18 08:36 Dose: 10 mg Diltiazem HCl (Cardizem Cd 180 Mg) 180 mg PO DAILY [facility] Last Admin: 06/23/18 08:38 Dose: 180 mg Fluticasone Propionate (Flonase) 2 spray EA NOSTRIL BID [facility] Last Admin: 06/23/18 11:00 Dose: 2 spray Hydrochlorothiazide (Hydrodiuril) 25 mg PO WB [facility] Last Admin: 06/23/18 08:36 Dose: 25 mg Hydrocortisone (Anusol-Hc 2.5% Cream) 1 applic TOP PRN PRN Insulin Aspart (Novolog) 0 unit SQ PRN PRN; Protocol Last Admin: 06/23/18 11:00 Dose: 3 unit Levothyroxine Sodium (Synthroid) 75 mcg PO ACB [facility] Last Admin: 06/23/18 06:23 Dose: 75 mcg Losartan Potassium (Cozaar) 50 mg PO DAILY [facility] Last Admin: 06/23/18 08:38 Dose: 50 mg Magnesium Hydroxide (Mom) 30 ml PO DAILY PRN PRN Reason: Constipation Metformin HCl (Glucophage) 850 mg PO WB [facility] (Biotin [Biotin] 1 (Mg)) 1 mg PO DAILY [facility] --Pom--Loteprednol 0 (.5% Suspension) 1 each EACH EYE DAILY [facility] Last Admin: 06/23/18 08:40 Dose: 1 each Polyethyl Glycol/Propylene Glycol (Systane Eye Drops) 1 drop EACH EYE QID [facility] Last Admin: 06/23/18 08:39 Dose: 1 drop Polyethylene Glycol (Miralax) 17 gm PO DAILY PRN PRN Reason: Constipation Sodium Chloride (Iv Flush) 10 ml IV PRN PRN PRN Reason: Flushing Last Admin: 06/22/18 20:31 Dose: 10 ml Current Medical Issues: 1. Recent sepsis and wound infection: Patient continues on oral antibiotics and is able to tolerate therapy at this time. 2. Diabetes mellitus type 2: Blood sugars are monitored and are elevated. 3. Paroxysmal atrial fibrillation: Patient is newly on Eliquis, amiodarone and diltiazem Comments: I certify that I personally led the interdisciplinary team meeting and agree with comments, barriers and goals indicated. Team meeting was held in the patient's room with the patient and the following family members present: Patient's Mr. Batista's blood sugars have been a bit elevated. Metformin was held for a time but will now restart tomorrow. He has been on sliding insulin scale. He has history of wound infection. He remains on amoxicillin and tolerating it well. The wound looks good. - Physical Therapy Bed, Chair, Wheelchair Transfer Assist: Modified Independent Ambulation Ability: Stand By Assist/Supervision Ambulation Distance: 600 Stair Climbing Ability: Modified Independent Number of Steps Climbed: 12 Car Transfer Ability: Modified Independent Comments: He has demonstrated improvement in his balance and endurance. Tinetti score is 26 and Benavidez is 54. He does require a cane for longer distances. - Occupational Therapy Eating Ability: Independent Grooming Ability: Modified Independent Bathing Ability: Stand By Assist/Supervision Upper Body Dressing Ability: Independent Lower Body Dressing Ability: Stand By Assist/Supervision Tub Transfer Assist: Patient Refuses Toileting Assist: Modified Independent Toilet Transfer Assist: Modified Independent Comments: He is performed ADL tasks with supervision to independent on this date. He does report easy fatigability particularly following showering. - Goals Physical Therapy Goals: 06/23/18: 1.) Advance to no assistive device with ambulation going 400 feet. 2.) Require only 1 rest break during 60 minute treatment session. 3.) Discharge Planning. Occupational Therapy Goals: OT goals 06/23/18: 1.) Lower body dressing with modified independence. 2.) Increase sustained activity tolerance to 60 minutes w/ 2 RB. - Barriers to Discharge Barriers to Attaining Goals: Endurance - Care Plan Anticipated Length of Stay (days): 3 Anticipated DC Destination: Home, Self Care I have led this team conference and agree with the plan. Interventions/Goals: Patient has progressed nicely with physical therapy and occupational therapy. His wound care indicates good healing of the wound without evidence of recurrent infection. He does have easy fatigability and reduced endurance and would benefit from a couple of more days of therapy. Anticipate safe transition to his home environment on 06/26/2018 with possible continued outpatient therapy.
[2018-06-24] MEDS: LEVOTHYROXINE 75 MCG TABLET PO SCH (05:38)
[2018-06-24] MEDS: AMIODARONE 200 MG TABLET PO SCH (08:28)
[2018-06-24] MEDS: METFORMIN 850 MG TABLET PO SCH (08:28)
[2018-06-24] MEDS: ASCORBIC ACID 500 MG TABLET PO SCH (08:29)
[2018-06-24] MEDS: APIXABAN 5 MG TABLET PO SCH ×2 (08:29→20:39)
[2018-06-24] MEDS: AMOXICILLIN 500 MG CAPSULE PO SCH ×2 (08:29→17:02)
[2018-06-24] MEDS: ASPIRIN 81 MG CHEWABLE TABLET PO SCH (08:29)
[2018-06-24] MEDS: LOSARTAN 50 MG TABLET PO SCH (08:30)
[2018-06-24] MEDS: LOTEPREDNOL 0.5% EACH EYE SCH (08:31)
[2018-06-24] MEDS: EYE EACH EYE SCH (08:31)
[2018-06-24] MEDS: FLUTICASONE NASAL SPRAY 50mcg EA NOSTRIL SCH ×2 (08:31→20:39)
[2018-06-24] MEDS: SYSTANE EYE DROPS 0.7ml EACH EYE SCH ×4 (08:31→20:40)
[2018-06-24] MEDS: INSULIN ASPART 100unit/ml INJECTION SQ PRN ×2 (10:57→20:38)
[2018-06-25] MEDS: AMOXICILLIN 500 MG CAPSULE PO SCH ×3 (02:30→17:29)
[2018-06-25] MEDS: LEVOTHYROXINE 75 MCG TABLET PO SCH ×2 (05:21→08:22)
[2018-06-25] MEDS: ASPIRIN 81 MG CHEWABLE TABLET PO SCH (08:38)
[2018-06-25] MEDS: LOSARTAN 50 MG TABLET PO SCH (08:39)
[2018-06-25] MEDS: METFORMIN 850 MG TABLET PO SCH (08:39)
[2018-06-25] MEDS: FLUTICASONE NASAL SPRAY 50mcg EA NOSTRIL SCH ×2 (08:41→20:28)
[2018-06-25] MEDS: AMIODARONE 200 MG TABLET PO SCH (08:41)
[2018-06-25] MEDS: APIXABAN 5 MG TABLET PO SCH ×2 (08:41→20:29)
[2018-06-25] MEDS: ASCORBIC ACID 500 MG TABLET PO SCH (08:41)
[2018-06-25] MEDS: EYE EACH EYE SCH (08:46)
[2018-06-25] MEDS: LOTEPREDNOL 0.5% EACH EYE SCH (08:46)
[2018-06-25] MEDS: SYSTANE EYE DROPS 0.7ml EACH EYE SCH ×4 (09:45→20:29)
[2018-06-25] MEDS: INSULIN ASPART 100unit/ml INJECTION SQ PRN (10:52)
[2018-06-26] MEDS: AMOXICILLIN 500 MG CAPSULE PO SCH ×2 (01:37→08:56)
[2018-06-26] MEDS: LEVOTHYROXINE 75 MCG TABLET PO SCH (05:49)
[2018-06-26 08:50] VITALS: BP 137/72; PULSE 74; RESP 16; TEMP 98.5; O2SAT 96
[2018-06-26] MEDS: AMIODARONE 200 MG TABLET PO SCH (08:56)
[2018-06-26] MEDS: APIXABAN 5 MG TABLET PO SCH (08:56)
[2018-06-26] MEDS: METFORMIN 850 MG TABLET PO SCH (08:56)
[2018-06-26] MEDS: FLUTICASONE NASAL SPRAY 50mcg EA NOSTRIL SCH (08:57)
[2018-06-26] MEDS: LOSARTAN 50 MG TABLET PO SCH (08:57)
[2018-06-26] MEDS: SYSTANE EYE DROPS 0.7ml EACH EYE SCH (08:58)
[2018-06-26] MEDS: LOTEPREDNOL 0.5% EACH EYE SCH (08:58)
[2018-06-26] MEDS: EYE EACH EYE SCH (08:58)
[2018-06-26] MEDS: SALINE FLUSH 10ml SYRINGE IV PRN (08:59)
[2018-06-26] MEDS: ASCORBIC ACID 500 MG TABLET PO SCH (09:00)
[2018-06-26] MEDS: ASPIRIN 81 MG CHEWABLE TABLET PO SCH (09:00)
[2018-06-26] MEDS: INSULIN ASPART 100unit/ml INJECTION SQ PRN (10:44)
--- NOTE | 2018-06-26 10:44 | IRU Progress Note ---
- Subjective/Serverity of Illness Date: 06/26/18 Mr. Batista was interviewed and examined in his room on inpatient rehabilitation. He states that he is ready to go home and feels confident about this transition. His was also present. They have chosen to do outpatient physical therapy. The patient's will change the wound dressings. Inspection of the wound shows excellent healing without evidence of infection. There is the typical amount of minimal redness but nothing that is alarming at this time. There is no purulent discharge. We will provide a prescription for a glucometer or equivalent as well as test strips. Blood sugars remain a bit elevated at over 200. Exam Vital Signs: Temperature 98.5 F 06/26/18 07:45 Pulse Rate 74 06/26/18 07:45 Respiratory Rate 16 06/26/18 07:45 Blood Pressure 137/72 06/26/18 07:45 Pulse Oximetry 96 06/26/18 07:45 Height/Weight/BMI: Height 1.83 m Weight 116.7 kg Body Mass Index 34.9 - Constitutional Present: no acute distress, well nourished, well developed, obese, cooperative - Routine HEENT Exam Eye: Present: EOMI ENT: Present: mucous membranes moist, dentition normal - Routine Respiratory Exam Present: CTA bilaterally. Absent: wheezes - Routine Cardiovascular Exam Present: RRR, S1, S2. Absent: murmur - Routine Abdominal Exam Present: soft, normoactive bowel sounds, non distended. Absent: tenderness - Routine Extremities Exam Present: no edema, normal capillary refill - Routine Back/Spine/Pelvis Exam Back/Spine: Absent: full ROM Comments: Patient's wound was inspected in the lumbar spine area. There is no evidence of purulent discharge. There is no alarming redness. - Routine Skin Exam Present: dry, warm - Routine Neurological Exam Present: alert, oriented X3, CN II-XII intact - Routine Psychiatric Exam Present: normal affect IRU A/P (1) Wound infection after surgery Qualifiers: Encounter type: initial encounter Qualified Code(s): T81.4XXA - Infection following a procedure, initial encounter Current visit: Yes Status: Acute He remains on amoxicillin. His wound is healing adequately. will be instructed in wound management. (2) Paroxysmal atrial fibrillation with rapid ventricular response Current visit: Yes Status: Acute Patient has remained in sinus mechanism clinically. (3) Benign essential hypertension Current visit: Yes Status: Chronic His blood pressures appear to be adequately controlled. (4) DM II (diabetes mellitus, type II), controlled Qualifiers: Diabetes mellitus intermediate accountant insulin use: without [place] use Diabetes mellitus complication status: without complication Qualified Code(s): E11.9 - Type 2 diabetes mellitus without complications Current visit: Yes Status: Chronic (5) Parkinson disease Current visit: Yes Status: Chronic (6) Sepsis following procedure Current visit: Yes Status: Resolved DVT Prophylaxis: Eliquis Resuscitation Status: Full Code - Course Hospital Course: Howard Staples MD: 06/23/18 10:37 Blood pressures variable with values up to 170. Blood sugar is stable. Back wound looks good. Cooperative with therapy. Saline lock came out so we'll discontinue telemetry. 06/26/18 10:44 Blood sugars remain a bit elevated. Wound looks great. Anticipate safe transfer to home today. - Interventions to Obtain Goals PT Treatment Plan: Balance/Proprioception, Functional Activities, Gait Training , Patient/Family Education, Therapeutic Exercise OT Treatment Plan: ADL (Basic Care), Balance Training, Pt./Family Education, Ther. Exercise for ADL
--- NOTE | 2018-06-26 15:34 | Discharge Summary ---
Discharge Information Date of admission: 06/21/18 15:06 Anticipated date of discharge: 06/26/18 Attending Physician: Howard Staples MD Primary care physician: Zach Hamilton MD Consults: 06/21/18 16:09 Physician Consult [CONS] Routine Consulting Provider: Shirin Quick Reason For Exam: medical management Ordering Provider has Notified Corporate Trust Officer: No 06/26/18 Outpatient PT Eval & Treat [CONS] Routine Postoperative Diagnosis: s/p laminectomy with post op wound infection: T81.4XXA Low back pain: M54.5 Outpatient PT Dx Code:: M54.5 Therapy Instructions:: Eval and Rx - Discharge Diagnosis (1) Wound infection after surgery Status: Acute (2) Paroxysmal atrial fibrillation with rapid ventricular response Status: Acute (3) Benign essential hypertension Status: Chronic (4) DM II (diabetes mellitus, type II), controlled Status: Chronic (5) Parkinson disease Status: Chronic Problems Reviewed?: Yes 1. Postoperative wound infection after laminectomy 2. Paroxysmal atrial fibrillation 3. Benign essential hypertension 4. Diabetes mellitus type 2 not on long-term insulin but with neurologic complications (peripheral neuropathy) 5. Parkinson's disease 6. Obstructive sleep apnea with use of nasal CPAP - Laboratory Labs: 06/22/18 04:09 06/22/18 04:09 History of Present Illness HPI: Mr. Batista is a very pleasant 63-year-old male with progressive low back pain. He underwent L4-L5 laminectomy by Dr. Bingham on 05/30/2018. He initially did well but subsequently developed progressive fever and low back pain with weakness, dizziness and confusion. He presented to the emergency department on 06/12/2018. He met sepsis criteria and was felt to have a wound infection/ abscess in the operative field. He was started on cefepime. Patient was seen by Dr. Baker who was on-call for Dr. Bingham. Incision and drainage of the lumbar spine wound along with excisional debridement and closure above the level of the fascia was performed on 06/13/2018. Wound cultures grew Escherichia coli. An MRI was attempted but the patient could not tolerate it without anesthesia. In the postoperative timeframe he did develop a cardiac arrest after having been given labetalol for elevated blood pressure. The arrest was apparently felt to be secondary to the sepsis plus use of labetalol. He was seen by Dr. John and started on amiodarone for atrial fibrillation with rapid ventricular response. He was intubated and was in the ICU until 06/19/2018. The patient developed multiple functional deficits and was transferred to acute inpatient rehabilitation at [facility] on 06/21/2018. Hospital Course This is a general summary of the patient's hospital course. For more details refer to the complete medical record. On acute inpatient rehabilitation he was followed by the hospitalist service as well as Dr. Staples. We monitored his wound in the low back area which did extremely well and did not display evidence of ongoing infection. His blood sugars were monitored and these remained somewhat elevated around 200-220. He did receive supplemental sliding scale insulin during hospitalization but this was not continued at the time of dismissal. He was continued on amiodarone and low-dose of diltiazem plus Eliquis for his history of paroxysmal atrial fibrillation but appeared to remain in sinus mechanism throughout. On 06/22/2018 his white count was 6200, hemoglobin 12.3 and platelet count 296, 000. Differential demonstrated 40% neutrophils, 40% lymphocytes, 12% monocytes, 4% eosinophils and 1% metamyelocytes (this will need to be followed up as an outpatient). Chemistries were unremarkable except for his blood sugar being around 200-220. He was given a sliding insulin scale during hospitalization and continued on amoxicillin. He is to continue amoxicillin through 07/11/2018 for the Escherichia coli wound infection. Sutures were to be removed on July 08 if healed and no drainage. His amiodarone was reduced from 400 mg twice daily to 200 mg once daily on June 23. With regard to his diabetes, he is to continue metformin and dietary management but at this time not utilize insulin. He will continue use of his nasal CPAP for his sleep apnea. The following levels of functional competence are to be considered preliminary information. The reader is encouraged to refer to actual therapy notes and reports for specific details. The patient was followed by physical therapy while on acute inpatient rehabilitation. At the conclusion of his stay, the following functional competencies were identified: He was able to transfer with modified independent level. Toilet assistance toilet transfers with modified independent as well. Car transfers were modified independent. He was able to ambulate with a front- wheeled walker up to 500 feet. He was able to climb 16 steps with an assistive device. The patient was followed by occupational therapy while on acute inpatient rehabilitation. At the conclusion of his stay, the following functional competencies were identified: He was independent for eating, grooming, bathing as well as dressing. It is noted that we did provide a prescription for hydrocodone 7.5/325, #30 to use up to four times daily as needed for pain. His was instructed in wound dressing. There was no significant drainage at the time of dismissal and no evidence of infection. He remained afebrile. He will receive outpatient physical therapy as well as follow-up with Dr. Baker/Otilia and Dr. Hamilton. He will also see his neurologist, Mandeep Garcia MD for his Parkinsons disease. Hospital course: 06/22/18 Agree with admission to IRU for therapies and pain control per Dr. Staples. Continue Amoxicillin 500mg TID through 07/11/18 for e coli wound infection of the back per Dr. Roberson. Sutures are to be removed Jul 08 if well healed and no drainage. Taper amiodarone from 400mg BID to 200mg daily on Jun 23. Will monitor on tele. Will consult Dr. John if any concerns during his stay. Outside records rec f-u with Dr John following discharge. Monitor BS's. Continue metformin and use SSI for strict BS control while healing. Hospitalist service will follow along with you throughout his stay. Thanks for the consult. Care to return to Dr. Hamilton on DC. Time spent with patient: greater than 35 minutes Resuscitation Status: Full Code Discharge Plan - Med Rec/Dispo Referrals/Follow Up: [facility] [Other] (PT appt. on 06/29/18 at 3:30 pm. Check-in at 3:00 pm. ) Neil John MD [Physician] - 2 Weeks (Appointment: 2-4 weeks - Please Call Office To Schedule Referral from previous hosp. stay.) Zach Hamilton MD [Primary Care Provider] - 1 Week (Dr. Debbie Hamilton on at 9:45 am for Hosp. follow-up. .) Prescriptions: New Amoxicillin 500 mg PO Q8HR #30 cap Amiodarone [Pacerone] 200 mg PO DAILY #30 tab Continue Multivitamin [Multivitamins] 1 each PO DAILY Cholecalciferol (Vitamin D3) [Vitamin D3] 1 tab PO DAILY Ascorbic Acid [Vitamin C] 1,000 mg PO DAILY Vitamin B Complex [Super B-50 Complex] 1 each PO DAILY Levothyroxine Tab [Synthroid] 75 mcg PO ACB Fluticasone Nasal [place] [Flonase] 2 spray EA NOSTRIL BID HydroCHLOROthiazide [Hydrodiuril] 1 tab PO WB Carbidopa/Levodopa [Sinemet Cr 25-100 Tablet] 1 each PO TID Aspirin Chewable [ASA] 81 mg PO DAILY Losartan Potassium [Cozaar] 50 mg PO DAILY Apixaban [Eliquis] 5 mg PO BID #60 tab dilTIAZem HCl [Diltiazem ER] 180 mg PO DAILY #30 cap.er.deg Hydrocodone/APAP 7.5/325 [[place] 7.5/325] 1 - 2 tab PO Q4HR PRN #30 tab PRN Reason: Pain Cyclobenzaprine [Flexeril] 1 tab PO TID PRN #30 tab PRN Reason: Pain Biotin 1 mg PO DAILY Metformin [Glucophage] 850 mg PO WB - Disposition 01 Discharged Home, Self-Care - Dismissal Complete Discharge Instructions are:: Complete
--- NOTE | 2018-06-26 15:36 | Letter to Referring Physician ---
Dear Dr. Hamilton, This is a brief note to bring you up-to-date on the status of Dao Batista and his stay on the acute inpatient rehabilitation unit at [facility]. As you are likely aware, this patient was initially admitted to Dr. Bingham for laminectomy of L4-L5 on 05/30/2018. Initially he did quite well and was dismissed home. However as of 06/12/2018 he developed worsening pain, fever and confusion. He presented again to the emergency department and was felt to have a postoperative wound infection/abscess. He was admitted to the hospital in [place] with sepsis. Dr. Villarreal was apparently party plan demonstrator for Dr. Bingham and he performed excision of the wound with irrigation etc. Escherichia coli was cultured from the wound and he was started on antibiotics. He remains on amoxicillin 500 mg 3 times a day through 07/11/2018. In addition the patient developed atrial fibrillation with rapid ventricular response in the postoperative timeframe. He was given labetalol for hypertension but unfortunately developed a cardiac arrest. He was intubated and was in the intensive care unit in [place] for several days, being transferred from the ICU on 06/19/2018. He was seen by Dr. John in [place] and started on amiodarone, diltiazem and Eliquis. The patient was stabilized while on the acute level and admitted to inpatient rehabilitation unit at [facility] on June 21, 2018. He remained in sinus mechanism here in [place]. While on inpatient rehabilitation, this patient was seen by occupational therapy and physical therapy and improved overall in their functional ability. We also monitored and managed the patient's multiple medical problems while on Acute Rehab. Please see a copy of the history and physical examination as well as discharge summary faxed separately for further details. Please note the followin. I did provide him a prescription for hydrocodone/acetaminophen 7.5/325 #30 to use up to four times daily as needed for severe pain. 2. His lumbar wound looked great at the time of dismissal from rehabilitation. There is no evidence of infection. His will be changing the dressings as needed. 3. He is to stay on amoxicillin until 07/11/2018. 4. His blood sugars ran a bit high on rehabilitation around 200. He was on a sliding insulin scale but is sent home on metformin only. I also gave him a prescription for test strips and a glucose machine and he is to monitor his sugars up to 4 times daily (fasting and 2 hours after each meal). 5. His differential did demonstrate 1% metamyelocytes on rehabilitation. I would recommend that be repeated to make sure this normalizes. Thank you for allowing us to be involved in this nice patient's care. Please contact me directly should you have any questions regarding their stay on the inpatient rehabilitation unit. Sincerely, Howard Staples M.D.
== END 2018-06-26 12:00 | disposition home or self-care (01) | DRG 946 ==
PROVIDERS: ADMIT Internal Medicine; ATTEND Internal Medicine